=== PATIENT | male | born 1985 | race Hispanic/Latino ===

== ENCOUNTER 2018-02-25 12:41 | Emergency (ER) | payer OTHER ==
[~2018-02-25] VITALS: Ht 175.3 cm; Wt 98.9 kg
[~2018-02-25 12:41] MED LIST: AMOXICILLIN500 M2 PO; AUGMENTIN 500-1 EACH PO; TYLENOL WITH C1 EACH PO
[2018-02-25 13:24] LABS: ABSOLUTE BASOPHIL COUNT 0 /CUMM (0.0-0.2); ABSOLUTE EOSINOPHIL COUNT 0.1 /CUMM (0.0-0.7); ABSOLUTE GRANULOCYTE CT 2.6 /CUMM (1.4-6.5); ABSOLUTE LYMPH COUNT 1.5 /CUMM (1.2-3.4); ABSOLUTE MONOCYTE COUNT 0.4 /CUMM (0.10-0.60); BASOPHIL % 0.4 % (0.0-2.0); EOSINOPHIL % 2.1 % (0-5); GRANULOCYTE % 56.5 % (42.2-75.2); HEMATOCRIT 41.2 % (42-52); MEAN CORPUSCULAR HGB 29.4 PG (27.0-31.0); MEAN CORPUSCULAR HGB CONC 34.9 G/DL (33.0-37.0); MEAN CORPUSCULAR VOLUME 84.3 FL (80.0-94.0); PLATELET COUNT 278 /CUMM (130-400); RBC DISTRIBUTION WIDTH 12.8 % (11.5-14.5); RED BLOOD CELL CT 4.89 /CUMM (4.70-6.10); WHITE BLOOD CELL COUNT 4.5 /CUMM (4.8-10.8)
--- NOTE | 2018-02-25 14:36 | ED CARDIAC/CP/PALPITATIONS ---
History of Present Illness General Chief Complaint: General Adult Stated Complaint: SIB BY [facility] EKG CHANGES Source: patient Exam Limitations: no limitations Vital Signs & Intake/Output Vital Signs & Intake/Output Vital Signs Date Time Temp Pulse Resp B/P B/P Pulse O2 O2 Flow FiO2 Mean Ox Delivery Rate 02/25 1517 98.4 63 18 149/96 99 Room Air 02/25 1303 97.1 71 18 150/100 98 Room Air Allergies Coded Allergies: No Known Allergies (03/14/16) Reconcile Medications No Known Home Medications Triage Note: PT SENT IN BY HIS FOR EKG CHANGES. PT STATES HE WAS AT THE OFFICE TO GET A PHYSICAL. PT C/O CRAMPS "AROUND MY HEART" THAT IS WHEN HE HAD AN EKG. PT STATES HE HAD THEM ABOUT 1.5 YEARS AGO PT DENIES SOB OR CHEST PAIN AT THIS TIME. Triage Nurses Notes Reviewed? yes Onset: Abrupt Duration: constant Timing: single episode today HPI: Patient is a 32-year-old male with an unremarkable past medical history presents emergency room today while receiving initial scheduled physical examination and establishment with primary care doctor and EKG was performed showing abnormal findings which patient was advised to present to the emergency room. Patient denies any fever chills chest pain arm pain jaw pain history of DVT PE, hemoptysis, dyspnea on exertion leg swelling. Denies any illicit drug use denies any smoking tobacco or alcohol. Denies any family history of cardiac disease before the age of 50. Patient otherwise is without complaints and is asymptomatic (Jason Nair) Past History Travel History Traveled to [place] past 21 day No Medical History Any Pertinent Medical History? none Neurological: NONE EENT: NONE Cardiovascular: NONE Respiratory: NONE Gastrointestinal: NONE Hepatic: NONE Renal: NONE Musculoskeletal: NONE Psychiatric: NONE Endocrine: NONE Blood Disorders: NONE Cancer(s): NONE PET AMBASSADOR/Reproductive: NONE Surgical History Surgical History: non-contributory Psychosocial History What is your primary language Persian Tobacco Use: Never used ETOH Use: occasional use Illicit Drug Use: denies illicit drug use Family History Hx Contributory? No (Jason Nair) Review of Systems Review of Systems Constitutional: Reports: no symptoms. EENTM: Reports: no symptoms. Respiratory: Reports: no symptoms. Cardiovascular: Reports: no symptoms. GI: Reports: no symptoms. Genitourinary: Reports: no symptoms. Musculoskeletal: Reports: no symptoms. Skin: Reports: no symptoms. Neurological/Psychological: Reports: no symptoms. Hematologic/Endocrine: Reports: no symptoms. Immunologic/Allergic: Reports: no symptoms. All Other Systems: Reviewed and Negative (Jason Nair) Physical Exam Physical Exam General Appearance: no apparent distress, alert, comfortable Head: atraumatic Eyes: Bilateral: normal appearance. Ears, Nose, Throat: normal pharynx, hearing grossly normal Neck: normal inspection, supple Respiratory: normal breath sounds, chest non-tender, no respiratory distress Cardiovascular: regular rate/rhythm Gastrointestinal: normal bowel sounds, soft, non-tender Extremities: normal inspection Neurologic/Psych: no motor/sensory deficits, awake, alert, oriented x 3 Skin: intact, normal color, warm/dry Core Measures ACS in differential dx? No CVA/TIA Diagnosis No Sepsis Present: No Sepsis Focused Exam Completed? No (Jason Nair) Progress Differential Diagnosis: AMI, aortic dissection, atrial fibrillation, cholecystitis, CHF/pulm edema, costochondritis, hyperkalemia, hypovolemia, hyperthyroid, hyperventilation, intracranial hemorrhage, musculoskeletal pain, myocarditis, pancreatitis, pericarditis, pneumonia, pneumothorax, PSVT, pulmonary embolism, PUD/GERD, PVCs/PACs, respiratory failure, sepsis, unstable angina, V-fib/V-Tach, WPW syndrome Plan of Care: Orders Procedure Date/time Status TROPONIN LEVEL 02/25 1303 Complete MAGNESIUM 02/25 1303 Complete COMPREHENSIVE METABOLIC PANEL 02/25 1303 Complete CBC WITHOUT DIFFERENTIAL 02/25 1303 Complete EKG 02/25 1242 Active Laboratory Tests 02/25/18 1315: Anion Gap 11, Estimated GFR > 60, BUN/Creatinine Ratio 12.7, Glucose 89, Calcium 9.8, Magnesium 2.2, Total Bilirubin 0.4, AST 33, ALT 54, Alkaline Phosphatase 44 , Troponin I < 0.01, Total Protein 8.0, Albumin 4.4, Globulin 3.6, Albumin/ Globulin Ratio 1.2, CBC w Diff NO MAN DIFF REQ, RBC 4.89, MCV 84.3, MCH 29.4, MCHC 34.9, RDW 12.8, MPV 8.0, Gran % 56.5, Lymphocytes % 32.7, Monocytes % 8.3, Eosinophils % 2.1, Basophils % 0.4, Absolute Granulocytes 2.6, Absolute Lymphocytes 1.5, Absolute Monocytes 0.4, Absolute Eosinophils 0.1, Absolute Basophils 0 Patient on initial presentation is resting comfortably bedside denies any symptoms initially EKG does show concerns of V2 ST elevation and lead 2 and lead 3 depression with T wave inversion however no previous to compare. Patient's initial blood work was unremarkable patient's heart score is 0 patient 's son advised to follow-up with button inspector. Discussed disposition and plan with Dr. Hayes who agrees Patient upon discharge looks well no apparent distress and will comply with discharge instructions and had no questions Pre-Hospital EK BPM,NSR V2 ELEVATION II,III MILD ST DEPRESSION, INVERSION T WAVES Initial ED EKG: normal intervals, 71 BPM, II,III MILD ST DEPRESSION (Jason Nair) Departure Departure Disposition: HOME OR SELF CARE Condition: Stable Clinical Impression Primary Impression: EKG, abnormal Referrals: Heather Romero MD (PCP/Family) Additional Instructions: As discussed follow-up on Wednesday with button inspector Dr. ONEILL If symptoms worsen or if YOU develop new concerning symptom return to emergency room Departure Forms: Customer Survey General Discharge Information Prescriptions: Current Visit Scripts No Known Home Medications (Jason Nair) PA/STRUCTURAL LAYOUT WORKER Co-Sign Statement Statement: ED Attending supervision documentation- [] I saw and evaluated the patient. I have also reviewed all the pertinent lab results and diagnostic results. I agree with the findings and the plan of care as documented in the PA's/STRUCTURAL LAYOUT WORKER's documentation. [X] I have reviewed the ED Record and agree with the PA's/STRUCTURAL LAYOUT WORKER's documentation. [] Additions or exceptions (if any) to the PAs/STRUCTURAL LAYOUT WORKER's note and plan are summarized below: [] (Kishor Landa DO) PA/STRUCTURAL LAYOUT WORKER Co-Sign Statement Statement: ED Attending supervision documentation- [] I saw and evaluated the patient. I have also reviewed all the pertinent lab results and diagnostic results. I agree with the findings and the plan of care as documented in the PA's/STRUCTURAL LAYOUT WORKER's documentation. [] I have reviewed the ED Record and agree with the PA's/STRUCTURAL LAYOUT WORKER's documentation. [] Additions or exceptions (if any) to the PAs/STRUCTURAL LAYOUT WORKER's note and plan are summarized below: [] (Freddy BOCANEGRA,Cortez Cook) Critical Care Note Critical Care Note Critical Care Time: non-applicable (Jason Nair)
[2018-02-25 15:17] VITALS: BP 149/96
== END 2018-02-25 15:18 ==
LOC: ERH 12:41
PROVIDERS: Physician Assistant
DX: R94.31 Abnormal electrocardiogram [ECG] [EKG] (principal)
CPT/HCPCS: 93005; 93010